=== PATIENT | female | born 1960 | race Caucasian/White ===

== ENCOUNTER 2017-03-30 07:51 | Emergency (ER) | payer BC ==
[~2017-03-30] VITALS: Ht 160 cm; Wt 63.6 kg
[2017-03-30] MEDS ORDERED: ALBU8HFA IH (08:04)
[2017-03-30] MEDS ORDERED: GuaiFENesin/D-METHORPHAN [SUGAR-FREE] 200-20MG/10 ML SYRUP UDCUP PO ONE (09:15)
[2017-03-30] MEDS ORDERED: ACETAMINOPHEN 325 MG TABLET PO ONE (09:15)
[2017-03-30] MEDS ORDERED: IPRATROPIUM BROMIDE 0.5 MG/2.5 ML NEB SOLUTION NEB ONE ×2 (09:15→09:30)
[2017-03-30] MEDS ORDERED: LEVALBUTEROL HCL 0.63 MG/3 ML NEB SOLUTION NEB ONE (09:30)
[2017-03-30 10:05] LABS: INFLUENZA TYPE B NEGATIVE FOR TYPE B (NEGATIVE)
[2017-03-30 10:52] VITALS: BP 119/67
== END 2017-03-30 11:09 | disposition home or self-care (01) ==
LOC: EMS 07:56
DX: J32.9 Chronic sinusitis, unspecified (principal); J06.9 Acute upper respiratory infection, unspecified; J44.9 Chronic obstructive pulmonary disease, unspecified; Z88.2 Allergy status to sulfonamides; Z88.1 Allergy status to other antibiotic agents; Z88.8 Allergy status to other drugs, medicaments and biological substances
CPT/HCPCS: 71020; 87804; 94640; 99285; Z7610

== ENCOUNTER 2017-04-15 11:01 | Emergency (ER) | payer BC ==
[~2017-04-15] VITALS: Ht 157.5 cm; Wt 63.5 kg
[~2017-04-15 11:01] MED LIST: ALBU8HFA IH
[2017-04-15] MEDS ORDERED: PERTUSS(ACELL),DIPH,TET VAC/PF 0.5 ML VIAL IM ONE (12:30)
[2017-04-15] MEDS ORDERED: IBUPROFEN 600 MG TABLET PO ONE (12:30)
[2017-04-15 15:13] VITALS: BP 134/77
== END 2017-04-15 15:21 | disposition home or self-care (01) ==
LOC: EMS 11:01
DX: S80.01XA Contusion of right knee, initial encounter (principal); S80.02XA Contusion of left knee, initial encounter; S60.222A Contusion of left hand, initial encounter; S50.812A Abrasion of left forearm, initial encounter; R03.0 Elevated blood-pressure reading, without diagnosis of hypertension; J44.9 Chronic obstructive pulmonary disease, unspecified; Z88.2 Allergy status to sulfonamides; V29.9XXA Motorcycle rider (driver) (passenger) injured in unspecified traffic accident, initial encounter; Y93.55 Activity, bike riding; Y92.89 Other specified places as the place of occurrence of the external cause; Y99.8 Other external cause status
CPT/HCPCS: 90471; 90715; 99284